=== PATIENT | female | born 1945 | race African-American/Black ===

== ENCOUNTER 2018-12-31 16:06 | Inpatient (IN) | payer MEDICARE, MEDICAID ==
[~2018-12-31] VITALS: Ht 157.5 cm; Wt 56.7 kg
[~2018-12-31 16:06] MED LIST: KEPP250 MT
[2018-12-31 18:01] LABS: CHLORIDE 102 mEq/L (98-107); INR 1.1; PROTHROMBIN TIME 10.6 sec (9.1-11.1)
[2018-12-31 18:05] LABS: ETHANOL BLOOD < 10 mg/dL
[2018-12-31 18:07] LABS: BASOPHILS % 0.3 % (0.0-2.0); EOSINOPHILS % 0.3 % (0.0-5.0); HEMATOCRIT. 43.8 % (36.0-48.0); HEMOGLOBIN. 14.2 g/dL (12.0-16.0); LYMPHOCYTES % 8.7 % (20.0-50.0); MEAN CORPUSCULAR HEMOGLOBIN 28.3 pg (28.0-32.0); MEAN CORPUSCULAR VOLUME 87.5 fL (81.0-99.0); MEAN PLATELET VOLUME 11.1 fl (7.4-10.4); MONOCYTES % 4.4 % (2.0-8.0); NEUTROPHILS % 86.3 % (40.0-76.0); PLATELET 101 x1000/uL (130-400); RED BLOOD CELL COUNT 5.01 mill/uL (4.2-5.4); RED CELL DISTRIBUTION WIDTH 15.9 % (11.6-14.6)
[2018-12-31 18:17] LABS: PLATELET ESTIMATE DECREASED
[2018-12-31 19:30] LABS: CLARITY URINE TURBID (CLEAR); COLOR URINE DARK YELLOW (YELLOW); KETONES URINE TRACE (NEGATIVE); LEUKOCYTE ESTERASE URINE 3+ (NEGATIVE); NITRITE URINE NEGATIVE (NEGATIVE); OCCULT BLOOD URINE 3+ (NEGATIVE); PH URINE 5.5 (4.5-8.0); PROTEIN URINE 2+ (NEGATIVE); SPECIFIC GRAVITY URINE 1.018 (1.005-1.030)
[2018-12-31 19:42] LABS: *AMPHETAMINES SCREEN URINE NEGATIVE (NEGATIVE); *BARBITURATES SCREEN URINE NEGATIVE (NEGATIVE); *BENZODIAZEPINES SCREEN URINE NEGATIVE (NEGATIVE); CANNABINOID URINE SCREEN NEGATIVE (NEGATIVE); METHADONE URINE SCREEN NEGATIVE (NEGATIVE); OPIATES URINE SCREEN NEGATIVE (NEGATIVE)
[2018-12-31 19:43] LABS: *COCAINE SCREEN URINE NEGATIVE (NEGATIVE)
[2018-12-31 19:44] LABS: PHENCYCLIDINE URINE SCREEN NEGATIVE (NEGATIVE)
[2018-12-31] MEDS ORDERED: SODIUM CHLORIDE 0.9% 1,000 ML IV ONE (21:30)
[2018-12-31] MEDS ORDERED: SODIUM CHLORIDE 0.9% 500 ML IV ONE (21:30)
[2018-12-31] MEDS ORDERED: CEFTRIAXONE 1 G PREMIX 50 ML IV ONE (21:45)
[2019-01-01 08:00] VITALS: BP 134/80
[2019-01-01] MEDS ORDERED: ACETAMINOPHEN 325MG TABLET PO PRN (08:30)
[2019-01-01] MEDS ORDERED: SODIUM CHL 0.45% + KCL 20MEQ/L 1,000 ML IV SCH (08:30)
[2019-01-01] MEDS ORDERED: ONDANSETRON HCL 4MG/2ML INJ IV PRN (08:30)
[2019-01-01] MEDS ORDERED: ENOXAPARIN 40MG/0.4ML SYR SUBCUT SCH (09:00)
[2019-01-01] MEDS ORDERED: LEVOFLOXACIN 500MG PREMIX 100 ML IV NR (10:00)
[2019-01-01 11:01] VITALS: BP 134/80
[2019-01-01 11:28] LABS: BASOPHILS % 0.4 % (0.0-2.0); EOSINOPHILS % 0.6 % (0.0-5.0); HEMATOCRIT. 36.7 % (36.0-48.0); LYMPHOCYTES % 9.5 % (20.0-50.0); MEAN CORPUSCULAR HEMOGLOBIN 28.6 pg (28.0-32.0); MEAN CORPUSCULAR VOLUME 87.6 fL (81.0-99.0); MEAN PLATELET VOLUME 10.8 fl (7.4-10.4); MONOCYTES % 5.8 % (2.0-8.0); NEUTROPHILS % 83.7 % (40.0-76.0); PLATELET 93 x1000/uL (130-400); RED BLOOD CELL COUNT 4.19 mill/uL (4.2-5.4)
[2019-01-01 11:31] LABS: CHLORIDE 111 mEq/L (98-107)
[2019-01-01 11:39] LABS: LDL CHOLESTEROL 89 mg/dL (5-100)
[2019-01-01] MEDS: DEXT 5%/0.45% NACL KCL 20MEQ/L 1,000 ML IV SCH (11:39)
[2019-01-01 11:40] LABS: HDL CHOLESTEROL 100 mg/dL (40-59)
[2019-01-01 11:51] LABS: FOLIC ACID (FOLATE) SERUM 14.9 ng/mL (>5.38)
[2019-01-01 12:00] VITALS: BP 119/71
[2019-01-01] MEDS: IPRATROPIUM/ALBUTEROL 0.5-3(2.5)MG/3ML NEB HHN SCH ×2 (12:37→21:26)
[2019-01-01 13:16] LABS: HEPATITIS B SURFACE ANTIGEN NEGATIVE
[2019-01-01 13:46] LABS: HEPATITIS A AB IGM NEGATIVE (NEGATIVE)
[2019-01-01] MEDS ORDERED: PNEUMOCOCCAL VACCINE IM ONE (14:00)
[2019-01-01 16:00] VITALS: BP 115/63
[2019-01-01 17:38] LABS: CREATINE KINASE MB FRACTION 7.9 ng/mL (0.5-3.6)
[2019-01-01 19:20] LABS: CLARITY URINE TURBID (CLEAR); COLOR URINE YELLOW (YELLOW); KETONES URINE TRACE (NEGATIVE); LEUKOCYTE ESTERASE URINE 3+ (NEGATIVE); NITRITE URINE NEGATIVE (NEGATIVE); OCCULT BLOOD URINE 3+ (NEGATIVE); PROTEIN URINE 1+ (NEGATIVE); SPECIFIC GRAVITY URINE 1.015 (1.005-1.030); UROBILINOGEN URINE 0.2 E.U./dL (0.2-1.0)
[2019-01-01 19:38] LABS: *AMPHETAMINES SCREEN URINE NEGATIVE (NEGATIVE); *BARBITURATES SCREEN URINE NEGATIVE (NEGATIVE)
[2019-01-01 19:39] LABS: *BENZODIAZEPINES SCREEN URINE NEGATIVE (NEGATIVE); *COCAINE SCREEN URINE NEGATIVE (NEGATIVE); CANNABINOID URINE SCREEN NEGATIVE (NEGATIVE); METHADONE URINE SCREEN NEGATIVE (NEGATIVE); OPIATES URINE SCREEN NEGATIVE (NEGATIVE); PHENCYCLIDINE URINE SCREEN NEGATIVE (NEGATIVE)
[2019-01-01 20:00] VITALS: BP_SYST 113; BP_SYST 123; BP_DIAS 72; BP_DIAS 80
[2019-01-02] VITALS: BP 152/53
[2019-01-02] MEDS: IPRATROPIUM/ALBUTEROL 0.5-3(2.5)MG/3ML NEB HHN SCH ×3 (00:09→16:15)
[2019-01-02] MEDS ORDERED: DEXTROSE 50% WATER 50ML SYRINGE IV PRN (00:30)
[2019-01-02 01:28] LABS: CREATINE KINASE MB FRACTION 7.4 ng/mL (0.5-3.6)
[2019-01-02] MEDS: DEXT 5%/0.45% NACL KCL 20MEQ/L 1,000 ML IV SCH ×2 (02:40→13:03)
[2019-01-02 04:00] VITALS: BP 96/77
[2019-01-02 07:12] LABS: CHLORIDE 109 mEq/L (98-107)
[2019-01-02] MEDS: INSULIN LISPRO 100 UNITS/ML SUBCUT SCH ×4 (07:15→22:00)
[2019-01-02 07:21] LABS: BASOPHILS % 0.7 % (0.0-2.0); EOSINOPHILS % 0.8 % (0.0-5.0); HEMATOCRIT. 35.2 % (36.0-48.0); HEMOGLOBIN. 11.4 g/dL (12.0-16.0); LYMPHOCYTES % 14.8 % (20.0-50.0); MEAN CORPUSCULAR HEMOGLOBIN 28.2 pg (28.0-32.0); MEAN CORPUSCULAR VOLUME 87.5 fL (81.0-99.0); MEAN PLATELET VOLUME 11.5 fl (7.4-10.4); MONOCYTES % 5.5 % (2.0-8.0); NEUTROPHILS % 78.2 % (40.0-76.0); PLATELET 87 x1000/uL (130-400); RED BLOOD CELL COUNT 4.03 mill/uL (4.2-5.4); RED CELL DISTRIBUTION WIDTH 15.9 % (11.6-14.6)
[2019-01-02 08:00] VITALS: BP 136/53
[2019-01-02] MEDS: LEVOFLOXACIN 250MG PREMIX 50 ML IV SCH (09:54)
[2019-01-02 10:30] LABS: BG BASE EXCESS 0.2 mmol/L (-2.0-2.0); BG CARBOXYHEMOGLOBIN 0.3 % (0.5-1.5); BG DEOXYHEMOGLOBIN 4.1 % (0.0-5.0); BG FRACTION INSPIRED OXYGEN 21; BG HCO3 ACT 25.3 mmol/L (22.0-26.0); BG METHEMOGLOBIN 0.4 % (0.0-1.5); BG OXYGEN SATURATION 95.9 % (92.0-98.5); BG OXYHEMOGLOBIN 95.2 % (94.0-97.0); BG PCO2 42.4 mmHg (35.0-45.0); BG PH 7.393 (7.350-7.450); BG PO2 100.1 mmHg (75.0-100.0); BG SAMPLE SITE LEFT BRACHIAL; BG TOTAL HEMOGLOBIN 12.2 g/dL (12.0-18.0); BG VENT MODE ROOM AIR
[2019-01-02 12:00] VITALS: BP 145/65
[2019-01-02] MEDS: BLOOD SUGAR DIAGNOSTIC STRIP TEST SCH ×3 (12:22→22:29)
[2019-01-02 16:00] VITALS: BP 132/68
[2019-01-02 20:00] VITALS: BP 113/77
[2019-01-03] VITALS: BP_SYST 135; BP_SYST 139; BP_DIAS 75; BP_DIAS 92
[2019-01-03] MEDS: IPRATROPIUM/ALBUTEROL 0.5-3(2.5)MG/3ML NEB HHN SCH ×5 (00:30→20:40)
[2019-01-03] MEDS: DEXT 5%/0.45% NACL KCL 20MEQ/L 1,000 ML IV SCH ×2 (00:44→15:19)
[2019-01-03 04:00] VITALS: BP 134/80
[2019-01-03] MEDS: INSULIN LISPRO 100 UNITS/ML SUBCUT SCH ×3 (04:00→16:00)
[2019-01-03] MEDS: BLOOD SUGAR DIAGNOSTIC STRIP TEST SCH ×4 (04:18→21:51)
[2019-01-03 08:00] VITALS: BP_SYST 117; BP_SYST 121; BP_DIAS 63; BP_DIAS 70
[2019-01-03] MEDS: LEVOFLOXACIN 250MG PREMIX 50 ML IV SCH (10:47)
[2019-01-03 12:00] VITALS: BP_SYST 114; BP_SYST 131; BP_DIAS 69; BP_DIAS 91
[2019-01-03 12:16] LABS: CHLORIDE 108 mEq/L (98-107)
[2019-01-03 16:00] VITALS: BP 142/87
[2019-01-03 20:00] VITALS: BP 141/93
[2019-01-04] VITALS: BP_SYST 139; BP_SYST 154; BP_DIAS 72; BP_DIAS 89
[2019-01-04] MEDS: IPRATROPIUM/ALBUTEROL 0.5-3(2.5)MG/3ML NEB HHN SCH ×4 (00:52→12:13)
[2019-01-04 04:00] VITALS: BP 125/40
[2019-01-04] MEDS: INSULIN LISPRO 100 UNITS/ML SUBCUT SCH ×2 (04:00→10:00)
[2019-01-04] MEDS: DEXT 5%/0.45% NACL KCL 20MEQ/L 1,000 ML IV SCH (04:41)
[2019-01-04] MEDS: BLOOD SUGAR DIAGNOSTIC STRIP TEST SCH ×2 (04:42→10:13)
[2019-01-04 06:05] LABS: BASOPHILS % 0.5 % (0.0-2.0); EOSINOPHILS % 0.9 % (0.0-5.0); HEMATOCRIT. 37.3 % (36.0-48.0); HEMOGLOBIN. 11.8 g/dL (12.0-16.0); LYMPHOCYTES % 23.1 % (20.0-50.0); MEAN CORPUSCULAR HEMOGLOBIN 27.9 pg (28.0-32.0); MEAN CORPUSCULAR VOLUME 88.2 fL (81.0-99.0); MEAN PLATELET VOLUME 11.1 fl (7.4-10.4); MONOCYTES % 6.2 % (2.0-8.0); NEUTROPHILS % 69.3 % (40.0-76.0); PLATELET 95 x1000/uL (130-400); RED BLOOD CELL COUNT 4.23 mill/uL (4.2-5.4); RED CELL DISTRIBUTION WIDTH 16.7 % (11.6-14.6)
[2019-01-04 06:20] LABS: CHLORIDE 106 mEq/L (98-107)
[2019-01-04 08:00] VITALS: BP_SYST 133; BP_SYST 150; BP_DIAS 83; BP_DIAS 96
[2019-01-04] MEDS: LEVOFLOXACIN 250MG PREMIX 50 ML IV SCH (10:15)
[2019-01-04 12:00] VITALS: BP_SYST 108; BP_SYST 119; BP_DIAS 62; BP_DIAS 67
[2019-01-04 12:15] VITALS: BP 119/67
== END 2019-01-04 16:27 | disposition home health service (06) | DRG 100 ==
LOC: ER 16:06 → 5WST 22:03 → EDBEDREQ 22:04 → EDBEDREQTM 22:04 → EDBEDREQ 22:13 → EDBEDREQTM 22:13 → ENRESERV 01-01 04:42
PROVIDERS: ADMIT Internal Medicine Geriatric Medicine; ATTEND Internal Medicine Geriatric Medicine
DX: R56.9 Unspecified convulsions (principal); G93.41 Metabolic encephalopathy; N39.0 Urinary tract infection, site not specified; N13.30 Unspecified hydronephrosis; E86.0 Dehydration; R74.0 Nonspecific elevation of levels of transaminase and lactic acid dehydrogenase [LDH]; D69.6 Thrombocytopenia, unspecified; R00.1 Bradycardia, unspecified; E16.2 Hypoglycemia, unspecified; F02.80 Dementia in other diseases classified elsewhere, unspecified severity, without behavioral disturbance, psychotic disturbance, mood disturbance, and anxiety; G30.9 Alzheimer's disease, unspecified; M06.9 Rheumatoid arthritis, unspecified; Z79.899 Other long term (current) drug therapy; Z99.3 Dependence on wheelchair; R73.9 Hyperglycemia, unspecified
CPT/HCPCS: 36415; 36600; 71045; 76700; 80048; 80061; 80076; 80305; 80320; 82375; 82553; 82607; 82746; 82805; 82962; 83036; 84443; 84484; 86705; 86709; 86803; 87340; 90732; 93005; 93306; 93970; 94640; 96374; 99285; A6261; J0696; J1650; J1956; J7030; J7040; J7050; J7620; G0480

== ENCOUNTER 2019-01-27 17:47 | Inpatient (IN) | payer MEDICARE, MEDICAID ==
[~2019-01-27] VITALS: Ht 162.6 cm; Wt 52.6 kg
[2019-01-27] MEDS ORDERED: SODIUM CHLORIDE 0.9% 1,000 ML IV ONE (18:08)
[2019-01-27] MEDS ORDERED: ONDANSETRON HCL 4MG/2ML INJ IV STA (18:08)
[2019-01-27 18:45] LABS: BASOPHILS % 0.6 % (0.0-2.0); EOSINOPHILS % 1.1 % (0.0-5.0); HEMATOCRIT. 36.1 % (36.0-48.0); HEMOGLOBIN. 11.8 g/dL (12.0-16.0); LYMPHOCYTES % 18.5 % (20.0-50.0); MEAN CORPUSCULAR HEMOGLOBIN 28.4 pg (28.0-32.0); MEAN CORPUSCULAR VOLUME 87.1 fL (81.0-99.0); MEAN PLATELET VOLUME 10.2 fl (7.4-10.4); MONOCYTES % 6.4 % (2.0-8.0); NEUTROPHILS % 73.4 % (40.0-76.0); PLATELET 242 x1000/uL (130-400); RED BLOOD CELL COUNT 4.14 mill/uL (4.2-5.4); RED CELL DISTRIBUTION WIDTH 16.7 % (11.6-14.6)
[2019-01-27 18:49] LABS: CHLORIDE 103 mEq/L (98-107)
[2019-01-27 20:38] LABS: CLARITY URINE CLEAR (CLEAR); COLOR URINE YELLOW (YELLOW); KETONES URINE NEGATIVE (NEGATIVE); LEUKOCYTE ESTERASE URINE NEGATIVE (NEGATIVE); NITRITE URINE NEGATIVE (NEGATIVE); OCCULT BLOOD URINE NEGATIVE (NEGATIVE); PROTEIN URINE 1+ (NEGATIVE); SPECIFIC GRAVITY URINE 1.018 (1.005-1.030)
[2019-01-27] MEDS ORDERED: MORPHINE SULFATE 4 MG/ML CPJ (NOT FOR IM USE) IV ONE (21:45)
[2019-01-27] MEDS ORDERED: FAMOTIDINE 20MG/2ML VIAL IV SCH (21:45)
[2019-01-27] MEDS ORDERED: IOHEXOL-300 100 ML BOTTLE ONE (22:56)
[2019-01-27] MEDS ORDERED: GUAIFENESIN 200MG/10ML SUGAR FREE UDC PO PRN (23:15)
[2019-01-27] MEDS ORDERED: MAGNESIUM/ALUMINUM HYDROXIDE/SIMETHICONE 30ML UDC PO PRN (23:15)
[2019-01-27] MEDS ORDERED: ONDANSETRON HCL 4MG/2ML INJ IV PRN (23:15)
[2019-01-27] MEDS ORDERED: DIPHENHYDRAMINE 50MG/ML VIAL IV PRN (23:15)
[2019-01-27] MEDS ORDERED: IPRATROPIUM/ALBUTEROL 0.5-3(2.5)MG/3ML NEB INH PRN (23:15)
[2019-01-27] MEDS ORDERED: CLONIDINE 0.1MG TABLET PO PRN (23:15)
[2019-01-27] MEDS ORDERED: HYDROCODONE/ACETAMINOPHEN 5/325MG TABLET PO PRN (23:15)
[2019-01-27] MEDS ORDERED: DOCUSATE SODIUM 100MG CAPSULE PO PRN (23:15)
[2019-01-27] MEDS ORDERED: ACETAMINOPHEN 325MG TABLET PO PRN (23:15)
[2019-01-27] MEDS ORDERED: HYDRALAZINE 20MG/ML VIAL IV PRN (23:15)
[2019-01-27] MEDS ORDERED: LORAZEPAM 2MG/ML CPJ IV PRN (23:15)
[2019-01-27] MEDS ORDERED: HYDROMORPHONE HCL/PF 2MG/ML CPJ IV PRN (23:15)
[2019-01-28] VITALS (8 sets, daily range): BP systolic 118–143; BP diastolic 59–79
[2019-01-28] MEDS: SODIUM CHLORIDE 0.9% INJ 3ML FLUSH IVF SCH ×3 (05:44→21:47)
[2019-01-28 09:06] LABS: BASOPHILS % 0.9 % (0.0-2.0); EOSINOPHILS % 1.3 % (0.0-5.0); HEMOGLOBIN. 11.1 g/dL (12.0-16.0); LYMPHOCYTES % 24.9 % (20.0-50.0); MEAN CORPUSCULAR HEMOGLOBIN 28.5 pg (28.0-32.0); MEAN CORPUSCULAR VOLUME 86.9 fL (81.0-99.0); MEAN PLATELET VOLUME 10.2 fl (7.4-10.4); MONOCYTES % 8.8 % (2.0-8.0); NEUTROPHILS % 64.1 % (40.0-76.0); PLATELET 218 x1000/uL (130-400); RED BLOOD CELL COUNT 3.91 mill/uL (4.2-5.4); RED CELL DISTRIBUTION WIDTH 16.6 % (11.6-14.6)
[2019-01-28 09:07] LABS: CHLORIDE 107 mEq/L (98-107)
[2019-01-28 09:16] LABS: CREATINE KINASE 146 IU/L (26-192)
[2019-01-28 09:18] LABS: CREATINE KINASE MB FRACTION 4.8 ng/mL (0.5-3.6)
[2019-01-28 17:06] LABS: CREATINE KINASE 134 IU/L (26-192)
[2019-01-28 17:07] LABS: CREATINE KINASE MB FRACTION 4.5 ng/mL (0.5-3.6)
[2019-01-29 04:00] VITALS: BP 127/74
[2019-01-29] MEDS: SODIUM CHLORIDE 0.9% INJ 3ML FLUSH IVF SCH ×3 (06:37→22:30)
[2019-01-29 08:00] VITALS: BP 129/59
[2019-01-29] MEDS ORDERED: BISACODYL 10MG SUPP PR NR (08:30)
[2019-01-29 12:00] VITALS: BP 118/47
[2019-01-29 16:00] VITALS: BP 110/59
[2019-01-29 20:00] VITALS: BP 124/71
[2019-01-29] MEDS: LACTULOSE 20G/30ML UDC PO PRN (21:37)
[2019-01-30] VITALS: BP 144/85
[2019-01-30 04:00] VITALS: BP 129/68
[2019-01-30] MEDS: SODIUM CHLORIDE 0.9% INJ 3ML FLUSH IVF SCH ×3 (05:10→21:52)
[2019-01-30 08:00] VITALS: BP 126/69
[2019-01-30] MEDS: LACTULOSE 20G/30ML UDC PO PRN (10:02)
[2019-01-30 12:00] VITALS: BP 106/55
[2019-01-30] MEDS ORDERED: NA PHOS,M-B/NA PHOS,DI-BA ENEMA 118ML PR NR (14:45)
[2019-01-30 16:00] VITALS: BP 101/76
[2019-01-30 20:00] VITALS: BP 134/88
[2019-01-31] VITALS: BP 123/72
[2019-01-31 04:00] VITALS: BP 99/55
[2019-01-31] MEDS: SODIUM CHLORIDE 0.9% INJ 3ML FLUSH IVF SCH (06:11)
[2019-01-31] MEDS: LACTULOSE 20G/30ML UDC PO PRN (08:25)
[2019-01-31 08:52] VITALS: BP 116/61
[2019-01-31] MEDS ORDERED: DOCUSATE SODIUM 100MG CAPSULE PO SCH (09:00)
[2019-01-31 12:53] VITALS: BP 108/63
[2019-01-31 13:41] VITALS: BP 108/63
== END 2019-01-31 16:20 | disposition home health service (06) | DRG 379 ==
LOC: ER 17:47 → 6WST 21:44 → EDBEDREQ 21:46 → EDBEDREQTM 21:46 → ENRESERV 23:16
PROVIDERS: ADMIT Internal Medicine; ATTEND Internal Medicine
DX: K92.2 Gastrointestinal hemorrhage, unspecified (principal); F03.90 Unspecified dementia, unspecified severity, without behavioral disturbance, psychotic disturbance, mood disturbance, and anxiety; M19.90 Unspecified osteoarthritis, unspecified site; K59.00 Constipation, unspecified; D50.0 Iron deficiency anemia secondary to blood loss (chronic)
CPT/HCPCS: 36415; 71045; 74177; 82550; 82553; 83880; 84484; 86850; 86900; 93005; 99285; J2405; J3490; J7030; Q9967

== ENCOUNTER 2019-09-19 11:10 | Inpatient (IN) | payer MEDICARE, MEDICAID ==
[~2019-09-19] VITALS: Ht 162.6 cm; Wt 36.3 kg
[2019-09-19] MEDS ORDERED: SODIUM CHLORIDE 0.9% 1,000 ML IV ONE (11:23)
[2019-09-19 12:01] LABS: HEMATOCRIT. 28.7 % (36.0-48.0); HEMOGLOBIN. 9.5 g/dL (12.0-16.0); MEAN CORPUSCULAR HEMOGLOBIN 29.5 pg (28.0-32.0); MEAN PLATELET VOLUME 9.8 fl (7.4-10.4); PLATELET 125 x1000/uL (130-400); RED BLOOD CELL COUNT 3.22 mill/uL (4.2-5.4); RED CELL DISTRIBUTION WIDTH 15.8 % (11.6-14.6)
[2019-09-19 12:07] LABS: CHLORIDE 98 mEq/L (98-107)
[2019-09-19 12:16] LABS: INR 1.1; PROTHROMBIN TIME 10.8 sec (9.6-11.0)
[2019-09-19 12:23] LABS: PLATELET ESTIMATE SLIGHTLY DECREASED
[2019-09-19 12:31] LABS: CLARITY URINE TURBID (CLEAR); COLOR URINE YELLOW (YELLOW); KETONES URINE NEGATIVE (NEGATIVE); LEUKOCYTE ESTERASE URINE 2+ (NEGATIVE); NITRITE URINE POSITIVE (NEGATIVE); OCCULT BLOOD URINE NEGATIVE (NEGATIVE); PH URINE 7.5 (4.5-8.0); PROTEIN URINE NEGATIVE (NEGATIVE); SPECIFIC GRAVITY URINE 1.018 (1.005-1.030)
[2019-09-19] MEDS ORDERED: LORAZEPAM 2MG/ML CPJ IV PRN (19:30)
[2019-09-19] MEDS ORDERED: ACETAMINOPHEN 325MG TABLET PO PRN (19:30)
[2019-09-19] MEDS ORDERED: DIPHENHYDRAMINE 50MG/ML VIAL IV PRN (19:30)
[2019-09-19] MEDS ORDERED: ONDANSETRON HCL 4MG/2ML INJ IV PRN (19:30)
[2019-09-19] MEDS ORDERED: CLONIDINE 0.1MG TABLET PO PRN (19:30)
[2019-09-19 22:30] VITALS: BP 130/42
[2019-09-19] MEDS ORDERED: LEVETIRACETAM 250 MG in SODIUM CHLORIDE 0.9% 100 ML IV NR (23:45)
[2019-09-19 23:47] VITALS: BP 130/42
[2019-09-20] MEDS: SODIUM CHLORIDE 0.9% 1,000 ML IV SCH ×4 (00:56→21:51)
[2019-09-20] MEDS ORDERED: LEVOFLOXACIN 500MG PREMIX 100 ML IV SCH (01:00)
[2019-09-20] MEDS: LEVOFLOXACIN 250MG PREMIX 50 ML IV SCH (01:38)
[2019-09-20 04:00] VITALS: BP 103/58
[2019-09-20 07:05] LABS: BASOPHILS % 0.4 % (0.0-2.0); HEMATOCRIT. 32.9 % (36.0-48.0); LYMPHOCYTES % 14.1 % (20.0-50.0); MEAN CORPUSCULAR HEMOGLOBIN 29.4 pg (28.0-32.0); MEAN PLATELET VOLUME 9.9 fl (7.4-10.4); MONOCYTES % 11.8 % (2.0-8.0); NEUTROPHILS % 73.7 % (40.0-76.0); PLATELET 158 x1000/uL (130-400); RED BLOOD CELL COUNT 3.74 mill/uL (4.2-5.4)
[2019-09-20 08:06] VITALS: BP 88/47
[2019-09-20 08:07] LABS: CHLORIDE 101 mEq/L (98-107)
[2019-09-20 08:12] LABS: PHOSPHORUS 2.8 mg/dL (2.5-4.9)
[2019-09-20] MEDS: LEVETIRACETAM 250 MG in SODIUM CHLORIDE 0.9% 100 ML IV SCH ×2 (09:46→21:52)
[2019-09-20 12:01] VITALS: BP 121/63
[2019-09-20] MEDS ORDERED: MAGNESIUM 2 G PREMIX 50 ML IV NR (15:00)
[2019-09-20 15:59] VITALS: BP 119/65
[2019-09-20 20:19] VITALS: BP 125/75
[2019-09-21 00:09] VITALS: BP 126/66
[2019-09-21] MEDS: LEVOFLOXACIN 250MG PREMIX 50 ML IV SCH (00:41)
[2019-09-21 04:00] VITALS: BP 116/50
[2019-09-21 06:23] LABS: CHLORIDE 105 mEq/L (98-107)
[2019-09-21 06:38] LABS: PHOSPHORUS 2.4 mg/dL (2.5-4.9)
[2019-09-21 08:00] VITALS: BP 109/79
[2019-09-21] MEDS: LEVETIRACETAM 250MG in SODIUM CHLORIDE 0.9% 100ML IV SCH ×2 (09:12→23:06)
[2019-09-21] MEDS ORDERED: POTASSIUM CHLORIDE INJ 40 MEQ in DEXT 5% WATER 250 ML IV SCH (11:00)
[2019-09-21] MEDS ORDERED: MAGNESIUM 1 G PREMIX 100 ML IV SCH (11:00)
[2019-09-21 12:00] VITALS: BP 122/77
[2019-09-21 16:00] VITALS: BP 145/78
[2019-09-21 20:00] VITALS: BP 129/84
[2019-09-21 23:02] LABS: PHOSPHORUS 2.9 mg/dL (2.5-4.9)
[2019-09-21] MEDS: SODIUM CHLORIDE 0.9% 1,000 ML IV SCH (23:38)
[2019-09-22] VITALS: BP 140/77
[2019-09-22] MEDS: LEVOFLOXACIN 250MG PREMIX 50 ML IV SCH (00:38)
[2019-09-22] MEDS ORDERED: POTASSIUM CHLORIDE INJ 40 MEQ in DEXT 5% WATER 250 ML IV SCH (02:00)
[2019-09-22 04:00] VITALS: BP 103/54
[2019-09-22] MEDS: LEVETIRACETAM 250MG in SODIUM CHLORIDE 0.9% 100ML IV SCH (09:40)
[2019-09-22] MEDS ORDERED: POTASSIUM CHLORIDE 20MEQ TABLET SR PO ONE (11:15)
[2019-09-22 17:10] LABS: CHLORIDE 111 mEq/L (98-107)
[2019-09-22 20:00] VITALS: BP 157/74
[2019-09-22] MEDS ORDERED: METOPROLOL TARTRATE 25MG TABLET PO SCH (21:00)
[2019-09-22] MEDS: LEVETIRACETAM 500MG/5ML CUP PO SCH (21:52)
[2019-09-23] VITALS: BP 110/77
[2019-09-23 04:00] VITALS: BP 124/57
[2019-09-23 08:00] VITALS: BP 128/62
[2019-09-23] MEDS: LEVETIRACETAM 500MG/5ML CUP PO SCH (08:57)
[2019-09-23] MEDS ORDERED: LEVOFLOXACIN 250MG TABLET PO SCH (11:00)
[2019-09-23 12:00] VITALS: BP 115/65
[2019-09-23 14:46] VITALS: BP 115/65
[2019-09-23 16:00] VITALS: BP 97/59
== END 2019-09-23 19:16 | disposition home health service (06) | DRG 640 ==
LOC: ER 11:10 → 6WST 13:17 → EDBEDREQTM 13:28 → EDBEDREQ 13:28 → EDBEDREQSVC 13:28 → ENRESERV 19:03
PROVIDERS: ADMIT Internal Medicine; ATTEND Internal Medicine
DX: E86.0 Dehydration (principal); G93.41 Metabolic encephalopathy; N39.0 Urinary tract infection, site not specified; I47.1 Supraventricular tachycardia; E83.42 Hypomagnesemia; G40.909 Epilepsy, unspecified, not intractable, without status epilepticus; F03.90 Unspecified dementia, unspecified severity, without behavioral disturbance, psychotic disturbance, mood disturbance, and anxiety; E87.6 Hypokalemia; I27.20 Pulmonary hypertension, unspecified; I49.5 Sick sinus syndrome; M19.90 Unspecified osteoarthritis, unspecified site; Z79.899 Other long term (current) drug therapy
CPT/HCPCS: 36415; 71045; 80048; 80051; 81003; 82962; 83605; 83735; 84100; 84145; 84484; 87077; 87186; 93005; 93306; 93970; 96360; 99285; J1953; J1956; J3475; J3480; J7030; J7040; J7050; J7060

== ENCOUNTER 2020-06-25 09:17 | Inpatient (IN) | payer MEDICARE, MEDICAID ==
[~2020-06-25] VITALS: Ht 162.6 cm; Wt 50.3 kg
[2020-06-25] MEDS ORDERED: ACETAMINOPHEN 650MG SUPP PR STA (09:41)
[2020-06-25 10:40] LABS: BASOPHILS % 0.6 % (0.0-2.0); HEMATOCRIT. 38.4 % (36.0-48.0); HEMOGLOBIN. 12.8 g/dL (12.0-16.0); LYMPHOCYTES % 19.1 % (20.0-50.0); MEAN CORPUSCULAR HEMOGLOBIN 29.6 pg (28.0-32.0); MEAN CORPUSCULAR VOLUME 88.9 fL (81.0-99.0); MEAN PLATELET VOLUME 11.2 fl (7.4-10.4); MONOCYTES % 3.7 % (2.0-8.0); NEUTROPHILS % 76.6 % (40.0-76.0); PLATELET 163 x1000/uL (130-400); RED BLOOD CELL COUNT 4.31 mill/uL (4.2-5.4); RED CELL DISTRIBUTION WIDTH 14.5 % (11.6-14.6)
[2020-06-25 10:47] LABS: CHLORIDE 103 mEq/L (98-107)
[2020-06-25 11:51] LABS: CLARITY URINE TURBID (CLEAR); COLOR URINE YELLOW (YELLOW); KETONES URINE NEGATIVE (NEGATIVE); LEUKOCYTE ESTERASE URINE TRACE (NEGATIVE); NITRITE URINE NEGATIVE (NEGATIVE); OCCULT BLOOD URINE NEGATIVE (NEGATIVE); PROTEIN URINE 1+ (NEGATIVE); SPECIFIC GRAVITY URINE 1.021 (1.005-1.030)
[2020-06-25] MEDS ORDERED: ONDANSETRON HCL 4MG/2ML INJ IV PRN (14:30)
[2020-06-25] MEDS ORDERED: CEFEPIME 1,000 MG in DEXTROSE 5% WATER 50 ML IV SCH (14:30)
[2020-06-25] MEDS ORDERED: METRONIDAZOLE 500 MG PREMIX 100 ML IV SCH (14:30)
[2020-06-25] MEDS: SODIUM CHLORIDE 0.9% 1,000 ML IV SCH (14:50)
[2020-06-25] MEDS ORDERED: ENOXAPARIN 40MG/0.4ML SYR SUBCUT SCH (15:00)
[2020-06-25] MEDS ORDERED: IOHEXOL-350 100 ML BOTTLE ONE (18:16)
[2020-06-25 22:20] VITALS: BP_SYST 126; BP_SYST 127; BP_DIAS 75
[2020-06-25] MEDS: ACETAMINOPHEN 325MG TABLET PO PRN (22:58)
[2020-06-26] MEDS ORDERED: PHEN100O5 PO (02:03)
[2020-06-26] MEDS: METRONIDAZOLE 500 MG PREMIX 100 ML IV SCH ×3 (04:11→23:09)
[2020-06-26 08:00] VITALS: BP 112/66
[2020-06-26] MEDS ORDERED: ENOXAPARIN 40MG/0.4ML SYR SUBCUT SCH (09:00)
[2020-06-26] MEDS ORDERED: CEFEPIME 1,000 MG in DEXTROSE 5% WATER 50 ML IV SCH (09:00)
[2020-06-26] MEDS: CEFEPIME 1,000 MG in DEXTROSE 5% WATER 50 ML IV SCH (10:05)
[2020-06-26] MEDS: SODIUM CHLORIDE 0.9% 1,000 ML IV SCH (10:05)
[2020-06-26] MEDS: ALBUTEROL 6.7GM HFA INHALER ORI SCH ×2 (11:00→17:00)
[2020-06-26 12:00] VITALS: BP 131/86
[2020-06-26] MEDS: PHENYTOIN 100 MG/4 ML UDC NG SCH ×3 (12:13→17:11)
[2020-06-26 16:00] VITALS: BP 122/84
[2020-06-26 20:00] VITALS: BP 119/79
[2020-06-27] VITALS: BP 123/78
[2020-06-27 04:00] VITALS: BP 116/76
[2020-06-27] MEDS: METRONIDAZOLE 500 MG PREMIX 100 ML IV SCH ×2 (06:38→13:03)
[2020-06-27] MEDS: SODIUM CHLORIDE 0.9% 1,000 ML IV SCH (06:39)
[2020-06-27 08:00] VITALS: BP 111/78
[2020-06-27] MEDS: CEFEPIME 1,000 MG in DEXTROSE 5% WATER 50 ML IV SCH (08:08)
[2020-06-27] MEDS: PHENYTOIN 100 MG/4 ML UDC NG SCH ×3 (08:08→16:42)
[2020-06-27] MEDS: ACETAMINOPHEN 325MG TABLET PO PRN (08:09)
[2020-06-27] MEDS: ENOXAPARIN 30MG/0.3ML SYR SUBCUT SCH (08:09)
[2020-06-27 08:31] LABS: HEMATOCRIT. 32.2 % (36.0-48.0); HEMOGLOBIN. 10.5 g/dL (12.0-16.0); MEAN CORPUSCULAR HEMOGLOBIN 29.3 pg (28.0-32.0); MEAN CORPUSCULAR VOLUME 89.7 fL (81.0-99.0); MEAN PLATELET VOLUME 11.9 fl (7.4-10.4); PLATELET 119 x1000/uL (130-400); RED BLOOD CELL COUNT 3.59 mill/uL (4.2-5.4); RED CELL DISTRIBUTION WIDTH 14.5 % (11.6-14.6)
[2020-06-27 08:47] LABS: CHLORIDE 107 mEq/L (98-107)
[2020-06-27] MEDS: POTASSIUM CHLORIDE 20MEQ/PACKET PO SCH ×2 (09:45→13:03)
[2020-06-27 12:00] VITALS: BP 127/80
[2020-06-27 16:00] VITALS: BP 117/62
[2020-06-27 19:52] LABS: PLATELET ESTIMATE SLIGHTL
[2020-06-27 20:00] VITALS: BP 129/81
[2020-06-27] MEDS: ALBUTEROL (0.083%) 2.5MG/3ML NEB HHN SCH (20:35)
[2020-06-28] VITALS: BP 124/72
[2020-06-28] MEDS: ALBUTEROL (0.083%) 2.5MG/3ML NEB HHN SCH ×4 (00:24→20:58)
[2020-06-28] MEDS: METRONIDAZOLE 500 MG PREMIX 100 ML IV SCH ×4 (01:01→21:53)
[2020-06-28] MEDS: ACETAMINOPHEN 325MG TABLET PO PRN ×2 (01:05→17:37)
[2020-06-28 04:00] VITALS: BP 122/68
[2020-06-28] MEDS: SODIUM CHLORIDE 0.9% 1,000 ML IV SCH ×2 (05:55→21:54)
[2020-06-28 07:05] LABS: HEMATOCRIT. 33.3 % (36.0-48.0); HEMOGLOBIN. 10.8 g/dL (12.0-16.0); MEAN CORPUSCULAR HEMOGLOBIN 29.3 pg (28.0-32.0); MEAN CORPUSCULAR VOLUME 90.2 fL (81.0-99.0); MEAN PLATELET VOLUME 11.7 fl (7.4-10.4); PLATELET 120 x1000/uL (130-400); RED CELL DISTRIBUTION WIDTH 14.7 % (11.6-14.6)
[2020-06-28 07:26] LABS: CHLORIDE 108 mEq/L (98-107)
[2020-06-28 08:00] VITALS: BP 106/68
[2020-06-28] MEDS: CEFEPIME 1,000 MG in DEXTROSE 5% WATER 50 ML IV SCH (09:16)
[2020-06-28] MEDS: ENOXAPARIN 30MG/0.3ML SYR SUBCUT SCH (09:17)
[2020-06-28] MEDS: PHENYTOIN 100 MG/4 ML UDC NG SCH ×3 (09:17→17:37)
[2020-06-28 12:39] VITALS: BP 101/60
[2020-06-28 13:55] LABS: PLATELET ESTIMATE DECREASED
[2020-06-28 16:00] VITALS: BP 105/57
[2020-06-28 20:00] VITALS: BP 101/61
[2020-06-29] VITALS: BP 105/62
[2020-06-29 04:00] VITALS: BP 102/63
[2020-06-29] MEDS: METRONIDAZOLE 500 MG PREMIX 100 ML IV SCH ×3 (05:51→21:37)
[2020-06-29 08:00] VITALS: BP 95/57
[2020-06-29] MEDS: PHENYTOIN 100 MG/4 ML UDC NG SCH ×3 (09:12→17:00)
[2020-06-29] MEDS: ACETAMINOPHEN 325MG TABLET PO PRN (09:13)
[2020-06-29] MEDS: CEFEPIME 1,000 MG in DEXTROSE 5% WATER 50 ML IV SCH (09:15)
[2020-06-29] MEDS: ENOXAPARIN 30MG/0.3ML SYR SUBCUT SCH (09:15)
[2020-06-29] MEDS: ALBUTEROL (0.083%) 2.5MG/3ML NEB HHN SCH ×3 (09:36→21:36)
[2020-06-29 12:00] VITALS: BP 91/54
[2020-06-29] MEDS ORDERED: CEPH250C2 MT (18:00)
[2020-06-29] MEDS ORDERED: METR250T36 MT (18:00)
[2020-06-29 20:00] VITALS: BP 154/83
[2020-06-29] MEDS: SODIUM CHLORIDE 0.9% 1,000 ML IV SCH (21:38)
[2020-06-30] VITALS: BP 97/59
[2020-06-30] MEDS: ALBUTEROL (0.083%) 2.5MG/3ML NEB HHN SCH ×3 (02:50→13:46)
[2020-06-30 04:00] VITALS: BP 103/49
[2020-06-30] MEDS: METRONIDAZOLE 500 MG PREMIX 100 ML IV SCH (07:15)
[2020-06-30 08:00] VITALS: BP 109/63
[2020-06-30] MEDS: CEFEPIME 1,000 MG in DEXTROSE 5% WATER 50 ML IV SCH (08:55)
[2020-06-30] MEDS: PHENYTOIN 100 MG/4 ML UDC NG SCH ×2 (08:55→12:35)
[2020-06-30] MEDS: ENOXAPARIN 30MG/0.3ML SYR SUBCUT SCH (09:00)
[2020-06-30 12:00] VITALS: BP 102/58
[2020-06-30 15:18] VITALS: BP 102/58
[2020-06-30 16:00] VITALS: BP 109/55
== END 2020-06-30 16:23 | disposition home or self-care (01) | DRG 871 ==
LOC: ER 09:26 → 7WST 11:26 → EDBEDREQ 11:27 → EDBEDREQSVC 11:28 → ENRESERV 20:51 → 6EST 06-26 21:45
PROVIDERS: ADMIT Internal Medicine; ATTEND Internal Medicine
DX: A41.9 Sepsis, unspecified organism (principal); J96.00 Acute respiratory failure, unspecified whether with hypoxia or hypercapnia; G93.41 Metabolic encephalopathy; J12.9 Viral pneumonia, unspecified; E44.0 Moderate protein-calorie malnutrition; R47.01 Aphasia; Z68.1 Body mass index [BMI] 19.9 or less, adult; F02.80 Dementia in other diseases classified elsewhere, unspecified severity, without behavioral disturbance, psychotic disturbance, mood disturbance, and anxiety; G30.9 Alzheimer's disease, unspecified; R47.02 Dysphasia; Z66 Do not resuscitate; Z20.828 Contact with and (suspected) exposure to other viral communicable diseases; R13.10 Dysphagia, unspecified; R00.1 Bradycardia, unspecified; R74.0 Nonspecific elevation of levels of transaminase and lactic acid dehydrogenase [LDH]; B34.9 Viral infection, unspecified; E83.42 Hypomagnesemia; E87.6 Hypokalemia; G40.909 Epilepsy, unspecified, not intractable, without status epilepticus; Z93.1 Gastrostomy status; Z87.440 Personal history of urinary (tract) infections
CPT/HCPCS: 36415; 71045; 71275; 80048; 80053; 81003; 84484; 85025; 87635; 92610; 93005; 94640; 96365; 99285; J0692; J1650; J3490; J7060; Q9967

== ENCOUNTER 2023-05-25 20:18 | Inpatient (IN) | payer MEDICARE, MEDICAID ==
[~2023-05-25] VITALS: Ht 152.4 cm; Wt 50.3 kg
[~2023-05-25 20:18] MED LIST changes: +CEPH250C2 MT; +METR-354 MT; +PHEN100O5 PO
[2023-05-25 21:04] LABS: CHLORIDE 105 mEq/L (98-107)
[2023-05-25 21:15] LABS: BASOPHILS % 0.4 % (0.0-2.0); HEMATOCRIT. 40.1 % (36.0-48.0); HEMOGLOBIN. 12.3 g/dL (12.0-16.0); LYMPHOCYTES % 21.5 % (20.0-50.0); MEAN CORPUSCULAR HEMOGLOBIN 30.3 pg (28.0-32.0); MEAN CORPUSCULAR VOLUME 99.4 fL (81.0-99.0); MEAN PLATELET VOLUME 11.2 fl (7.4-10.4); MONOCYTES % 8.8 % (2.0-8.0); NEUTROPHILS % 68.3 % (40.0-76.0); PLATELET 198 x1000/uL (130-400); RED BLOOD CELL COUNT 4.04 mill/uL (4.2-5.4)
[2023-05-25 22:06] LABS: CLARITY URINE TURBID (CLEAR); COLOR URINE YELLOW (YELLOW); KETONES URINE NEGATIVE (NEGATIVE); LEUKOCYTE ESTERASE URINE NEGATIVE (NEGATIVE); NITRITE URINE NEGATIVE (NEGATIVE); OCCULT BLOOD URINE NEGATIVE (NEGATIVE); PROTEIN URINE NEGATIVE (NEGATIVE); SPECIFIC GRAVITY URINE 1.016 (1.005-1.030)
[2023-05-26] VITALS (32 sets, daily range): BP systolic 84–120; BP diastolic 57–75; PULSE 69–117; RESP 10–76; TEMP 98.6–99.5
[2023-05-26] MEDS: AMPICILLIN SOD/SULBACTAM NA 3 G in SODIUM CHLORIDE 0.9% 100 ML IV SCH ×2 (01:45→09:17)
[2023-05-26] MEDS ORDERED: DEXAMETHASONE 4MG/ML 1ML VIAL IV ONE (02:30)
[2023-05-26] MEDS ORDERED: PROPOFOL 10MG/ML 100ML 100 ML IV ONE ×2 (03:15→03:45)
[2023-05-26 03:29] LABS: BG BASE EXCESS 2.1 mmol/L (-2.0-2.0); BG CARBOXYHEMOGLOBIN 0.3 % (0.5-1.5); BG DEOXYHEMOGLOBIN 1.3 % (0.0-5.0); BG FRACTION INSPIRED OXYGEN 60; BG HCO3 ACT 22.3 mmol/L (22.0-26.0); BG METHEMOGLOBIN 0.3 % (0.0-1.5); BG OXYGEN SATURATION 98.7 % (92.0-98.5); BG OXYHEMOGLOBIN 98.1 % (94.0-97.0); BG PH 7.605 (7.350-7.450); BG PO2 261.8 mmHg (75.0-100.0); BG SAMPLE SITE RIGHT RADIAL; BG TOTAL HEMOGLOBIN 11.6 g/dL (12.0-18.0); BG VENT MODE VENT - AC
[2023-05-26] MEDS ORDERED: PROPOFOL 10MG/ML 100ML 100 ML IV NR (03:45)
[2023-05-26] MEDS ORDERED: DEXAMETHASONE 4MG/ML 1ML VIAL IV NR (03:45)
[2023-05-26] MEDS ORDERED: MAGNESIUM/ALUMINUM HYDROXIDE/SIMETHICONE 30ML UDC PO PRN (14:45)
[2023-05-26] MEDS ORDERED: ACETAMINOPHEN 325MG TABLET PO PRN ×2 (14:45)
[2023-05-26] MEDS ORDERED: CLONIDINE 0.1MG TABLET PO PRN (14:45)
[2023-05-26] MEDS ORDERED: ONDANSETRON HCL 4MG/2ML INJ IV PRN (14:45)
[2023-05-26] MEDS ORDERED: GUAIFENESIN 200MG/10ML SUGAR FREE UDC PO PRN (14:45)
[2023-05-26] MEDS ORDERED: IPRATROPIUM/ALBUTEROL 0.5-3(2.5)MG/3ML NEB HHN PRN (14:45)
[2023-05-26] MEDS ORDERED: DOCUSATE SODIUM 100MG CAPSULE PO PRN (14:45)
[2023-05-26] MEDS ORDERED: VANCOMYCIN 1G PREMIX 200 ML IV NR (15:30)
[2023-05-26] MEDS ORDERED: PIPERACILLIN/TAZ 3.375G PREMIX 50 ML IV NR (15:30)
[2023-05-26] MEDS: DEXAMETHASONE 4MG/ML 1ML VIAL IV SCH ×2 (18:14→23:14)
[2023-05-26] MEDS: ENOXAPARIN 40MG/0.4ML SYR SUBCUT SCH (18:15)
[2023-05-26] MEDS ORDERED: PROPOFOL 10MG/ML 100ML 100 ML IV PRN (18:45)
[2023-05-26] MEDS: LEVETIRACETAM 500MG/5ML CUP GT SCH (23:14)
[2023-05-26] MEDS: PIPERACILLIN/TAZOBACTAM 3.375G in DEXT 5% WATER 50ML IV SCH (23:14)
[2023-05-27] VITALS (59 sets, daily range): BP systolic 87–146; BP diastolic 58–85; PULSE 48–91; RESP 10–64; TEMP 97.4–98.8; O2SAT 100
[2023-05-27] MEDS: PIPERACILLIN/TAZOBACTAM 3.375G in DEXT 5% WATER 50ML IV SCH ×2 (05:23→13:32)
[2023-05-27] MEDS: DEXAMETHASONE 4MG/ML 1ML VIAL IV SCH ×3 (05:23→17:35)
[2023-05-27 07:29] LABS: CHLORIDE 104 mEq/L (98-107)
[2023-05-27 07:32] LABS: HEMATOCRIT 34.6 % (36.0-48.0); HEMOGLOBIN 11.4 g/dL (12.0-16.0); MEAN CORPUSCULAR HEMOGLOBIN 30.4 pg (28.0-32.0); PLATELET 188 x1000/uL (130-400); RED BLOOD CELL COUNT 3.75 mill/uL (4.2-5.4); RED CELL DISTRIBUTION WIDTH 13.5 % (11.6-14.6)
[2023-05-27] MEDS ORDERED: PHENYTOIN 125 MG PO SCH (09:00)
[2023-05-27] MEDS ORDERED: PANTOPRAZOLE SODIUM 40 MG/VIAL IV SCH (09:00)
[2023-05-27] MEDS ORDERED: VANCOMYCIN 1G PREMIX 200 ML IV NR (09:00)
[2023-05-27 09:04] LABS: BG BASE EXCESS 2.3 mmol/L (-2.0-2.0); BG CARBOXYHEMOGLOBIN 0.3 % (0.5-1.5); BG DEOXYHEMOGLOBIN 1.3 % (0.0-5.0); BG FRACTION INSPIRED OXYGEN 30; BG HCO3 ACT 25.7 mmol/L (22.0-26.0); BG METHEMOGLOBIN 0.1 % (0.0-1.5); BG OXYGEN SATURATION 98.7 % (92.0-98.5); BG OXYHEMOGLOBIN 98.3 % (94.0-97.0); BG PCO2 35.5 mmHg (35.0-45.0); BG PH 7.477 (7.350-7.450); BG PO2 133.7 mmHg (75.0-100.0); BG SAMPLE SITE RIGHT RADIAL; BG TOTAL HEMOGLOBIN 11.6 g/dL (12.0-18.0); BG VENT MODE VENT - AC
[2023-05-27] MEDS: PHENYTOIN 100 MG/4 ML UDC GT SCH ×3 (09:17→17:35)
[2023-05-27] MEDS: LEVETIRACETAM 500MG/5ML CUP GT SCH (09:17)
[2023-05-27] MEDS ORDERED: POTASSIUM CHLORIDE 20MEQ TABLET SR PO NR (14:30)
[2023-05-27] MEDS: ENOXAPARIN 40MG/0.4ML SYR SUBCUT SCH (17:35)
[2023-05-28] MEDS ORDERED: VANCOMYCIN 750MG PREMIX 150 ML IV SCH (09:00)
== END 2023-05-27 19:00 | disposition short-term general hospital (02) | DRG 606 ==
LOC: ER 21:53 → CVICU 05-26 14:09
PROVIDERS: ADMIT Hospitalist; ATTEND Hospitalist
PROC: 0BH17EZ Insertion of Endotracheal Airway into Trachea, Via Natural or Artificial Opening (ICD-10-PCS; principal; 2023-05-26)
PROC: 5A1945Z Respiratory Ventilation, 24-96 Consecutive Hours (ICD-10-PCS; 2023-05-26)
DX: C44.42 Squamous cell carcinoma of skin of scalp and neck (principal); E43 Unspecified severe protein-calorie malnutrition; J96.01 Acute respiratory failure with hypoxia; E87.0 Hyperosmolality and hypernatremia; R47.01 Aphasia; E87.1 Hypo-osmolality and hyponatremia; N39.0 Urinary tract infection, site not specified; G93.49 Other encephalopathy; G30.9 Alzheimer's disease, unspecified; Z66 Do not resuscitate; Z68.21 Body mass index [BMI] 21.0-21.9, adult; F02.80 Dementia in other diseases classified elsewhere, unspecified severity, without behavioral disturbance, psychotic disturbance, mood disturbance, and anxiety; G40.909 Epilepsy, unspecified, not intractable, without status epilepticus; K11.5 Sialolithiasis; M19.90 Unspecified osteoarthritis, unspecified site; E87.6 Hypokalemia; K14.8 Other diseases of tongue; R13.10 Dysphagia, unspecified; Z74.01 Bed confinement status; Z93.1 Gastrostomy status
CPT/HCPCS: 31500; 36415; 36600; 70487; 70491; 71045; 80048; 80053; 81003; 82375; 82805; 84134; 84145; 84478; 85025; 85027; 87070; 87077; 87186; 93306; 94002; 94003; 99291; C9113; J0295; J1100; J1650; J2543; J2704; J3370; J7050; J7060

== ENCOUNTER 2024-02-21 00:01 | Emergency (ER) | payer MEDICARE, MEDICAID ==
[~2024-02-21] VITALS: Ht 165.1 cm; Wt 46.0 kg
[2024-02-21 00:06] VITALS: O2SAT 97
[2024-02-21 00:50] LABS: BASOPHILS % 0.8 % (0.0-2.0); EOSINOPHILS % 4.1 % (0.0-5.0); HEMATOCRIT. 40.2 % (36.0-48.0); HEMOGLOBIN. 13.3 g/dL (12.0-16.0); LYMPHOCYTES % 34.2 % (20.0-50.0); MEAN CORPUSCULAR HEMOGLOBIN 30.2 pg (28.0-32.0); MEAN CORPUSCULAR VOLUME 91.6 fL (81.0-99.0); MEAN PLATELET VOLUME 10.9 fl (7.4-10.4); MONOCYTES % 8.7 % (2.0-8.0); NEUTROPHILS % 52.2 % (40.0-76.0); PLATELET 154 x1000/uL (130-400); RED BLOOD CELL COUNT 4.38 mill/uL (4.2-5.4); RED CELL DISTRIBUTION WIDTH 15.1 % (11.6-14.6); WHITE BLOOD COUNT 3.8 x1000/uL (4.5-11.0)
[2024-02-21 00:55] LABS: CHLORIDE 105 mEq/L (98-107); POTASSIUM 4.1 mEq/L (3.5-5.1); SODIUM 140 mEq/L (136-145)
[2024-02-21 00:56] LABS: CALCIUM 9.1 mg/dL (8.7-10.4); CARBON DIOXIDE 29 mEq/L (21-32)
[2024-02-21 01:00] LABS: INR 0.9; PARTIAL THROMBOPLASTIN TIME 31.9 sec (23.4-31.0); PROTHROMBIN TIME 10.6 sec (9.6-11.0)
[2024-02-21 01:01] LABS: CREATININE 0.4 mg/dL (0.6-1.0); GLUCOSE 107 mg/dL (70-105); UREA NITROGEN BLOOD 13 mg/dL (9-23)
[2024-02-21 01:02] LABS: TROPONIN I HIGH SENSITIVITY 16 ng/L (3.0-34)
[2024-02-21 01:03] LABS: ALANINE AMINOTRANSFERASE 23 IU/L (10-49); ALBUMIN 4.1 g/dL (3.2-4.8); ASPARTATE AMINOTRANSFERASE 37 IU/L (<34); BILIRUBIN TOTAL 0.2 mg/dL (0.1-1.0); PROTEIN TOTAL 8.3 g/dL (6.0-8.3)
[2024-02-21 01:05] LABS: ETHANOL BLOOD < 10 mg/dL (<10)
[2024-02-21 02:13] LABS: CLARITY URINE CLEAR (CLEAR); COLOR URINE YELLOW (YELLOW); GLUCOSE URINE NEGATIVE (NEGATIVE); KETONES URINE NEGATIVE (NEGATIVE); LEUKOCYTE ESTERASE URINE NEGATIVE (NEGATIVE); NITRITE URINE NEGATIVE (NEGATIVE); OCCULT BLOOD URINE NEGATIVE (NEGATIVE); PROTEIN URINE NEGATIVE (NEGATIVE); SPECIFIC GRAVITY URINE 1.011 (1.005-1.030)
[2024-02-21 02:26] LABS: *AMPHETAMINES SCREEN URINE NEGATIVE (NEGATIVE); *BARBITURATES SCREEN URINE NEGATIVE (NEGATIVE); *BENZODIAZEPINES SCREEN URINE NEGATIVE (NEGATIVE); *COCAINE SCREEN URINE NEGATIVE (NEGATIVE); CANNABINOID URINE SCREEN NEGATIVE (NEGATIVE); METHADONE URINE SCREEN Neg (NEGATIVE); OPIATES URINE SCREEN NEGATIVE (NEGATIVE); PHENCYCLIDINE URINE SCREEN NEGATIVE (NEGATIVE)
[2024-02-21 02:27] LABS: ECSTASY MDMA SCREEN URINE NEGATIVE (NEGATIVE)
[2024-02-21] MEDS: ACETAMINOPHEN 650MG/20.3ML UDC GT ONE (03:32)
[2024-02-21 04:48] LABS: BG BASE EXCESS 1.6 mmol/L (-2.0-2.0); BG CARBOXYHEMOGLOBIN 0.3 % (0.5-1.5); BG FRACTION INSPIRED OXYGEN 32; BG METHEMOGLOBIN 0.3 % (0.0-1.5); BG OXYHEMOGLOBIN 98.4 % (94.0-97.0); BG PH 7.358 (7.350-7.450); BG PO2 158.3 mmHg (75.0-100.0); BG SAMPLE SITE RIGHT RADIAL; BG TOTAL HEMOGLOBIN 14.5 g/dL (12.0-18.0); BG VENT MODE NASAL CANNULA
[2024-02-21 13:44] VITALS: BP 118/80; PULSE 65; RESP 17; TEMP 98
== END 2024-02-21 13:47 | disposition home or self-care (01) ==
LOC: ER 00:01
DX: L30.9 Dermatitis, unspecified (principal); R41.82 Altered mental status, unspecified; Z20.822 Contact with and (suspected) exposure to COVID-19
CPT/HCPCS: 36415; 36600; 71045; 80053; 80305; 80320; 81003; 82375; 82805; 83605; 83880; 84484; 85025; 86850; 86900; 87426; 93005; 99285; G0480